=== PATIENT | female | born 1970 | race Caucasian/White ===

== ENCOUNTER 2016-10-27 11:21 | Emergency (ER) | payer OTHER ==
[~2016-10-27] VITALS: Ht 175.3 cm; Wt 129.6 kg
[2016-10-27 11:27] VITALS: BP 154/106; PULSE 81; RESP 16; O2SAT 96
--- NOTE | 2016-10-27 11:34 | ED.REPORT ---
HPI-Abd Pain F 40 and Over Date of Service Oct 27, 2016 ED Provider: Celestino Villalobos DO The patient is a 46 year old female with history of diet controlled diabetes mellitus and hypertension, who presents to the emergency department complaining of left flank pain. The patient has noticed decreased urine output and hematuria over the last 2.5 weeks and is now having left flank pain, nausea, and decreased appetite. She has history of an obstructing kidney stone and subsequently developed sepsis. She is worried she is having a similar episode. Nursing Notes Stated Complaint: ABDOMINAL PAIN Chief Complaint: Female Abdominal Pain Nursing Notes Reviewed: Yes Allergies: Coded Allergies: Penicillins (Verified Allergy, Intermediate, RASH AND DIARRHEA BUT MAY HAVE BEEN CAUSED BY SOMETHING ELSE, 10/27/16) clarithromycin (Verified Adverse Reaction, Intermediate, DIARRHEA, 10/27/16 ) General Time Seen by MD: 11:32 Chief Complaint Flank pain left Hx Obtained From: Patient Arrived By: Walk-in Sudden in Onset?: No Onset Occurred: More than a week ago... Symptom Duration: Since onset Progression since Onset: Constant, Gradually worsening Location: : Flank left Quality: Painful Severity: Current: Moderate Severity: Maximum: Severe Associated with: Reports: Hematuria, Nausea Additional Notes: +decreased urination, decreased appetite Pertinent Negative: Pt denies other symptoms Recent Healthcare: No recent doctor visit, No recent hospitalization Similar Sx Previous: Yes Past Medical History Past Medical History Diabetes mellitus Hypertension Urinary incontinence Kidney stones Asthma PTSD Bipolar Family History Noncontributory Smoking History Unknown if Ever Smoker Social History Other Social History: Local resident Ambulatory Status Independent Review of Systems +Decreased appetite GI: Reports: Nausea Female: Reports: Flank pain, Hematuria, Urinary frequency, Urination decreased Complete sys rev & neg: except as marked. Physical Exam Vital Signs Vital Signs (First) Date Time Temp Pulse Resp B/P Pulse Ox O2 Delivery O2 Flow Rate FiO2 10/27/16 11:27 36 81 16 154/106 96 Room Air Initial VS: Reviewed Head / Eyes: Atraumatic, Normocephalic, PERRL ENT: Mucous membranes moist, Conjunctiva normal, No scleral icterus Neck: Supple, Non-tender, Full range of motion Lymphatic: No lymphadenopathy Extremities: Vascular intact, Neuro intact, No swelling, No tenderness Skin: Warm, Dry, No cyanosis Neurologic: Alert, Oriented, Nonfocal Psychiatric: Mood/affect normal, Behavior normal, Normal thought content General/Constitutional: Awake, Alert Appearance / Presentation: Positive: Obese Respiratory / Chest: Atraumatic, Breath sounds NL, Breath sounds = bilat, No respiratory distress, No rales, No rhonchi, No wheezing, No stridor Cardiovascular: Heart rate NL, Regular rhythm, Heart sounds NL, No gallop, No murmurs, No rubs, Peripheral circulation NL Abdomen: Atraumatic, Soft, Non-tender, McBurney's non-tender, No guarding, No rebound, BS normoactive, No distention, No hernia, No palpable mass, No pulsatile mass Back: Inspection NL, Full range of motion, No midline vertebral tend, No CVA tenderness Interpretation & Diagnostics Lab Results Interpretation Result Diagram: 10/27/16 1240 10/27/16 1240 Test 10/27/16 12:32 10/27/16 12:40 Urine Color Yellow (YELLOW) Urine Appearance Hazy (CLEAR,HAZY) Urine pH 7.0 (5.0-8.0) Urine Specific Douglas 1.015 (1.003-1.035) Urine Protein Negativemg/dL (NEG,TRACE) Urine Glucose (UA) Negativemg/dL (NEGATIVE) Urine Ketones Negativemg/dL (NEGATIVE) Urine Occult Blood Negative (NEGATIVE) Urine Nitrite Negative (NEGATIVE) Urine Bilirubin Negative (NEGATIVE) Urine Urobilinogen Normalmg/dL (NORMAL) Urine Leukocyte Esterase Negative (NEGATIVE) Urine RBC 0-2/hpf (0-2) Urine WBC 0-5/hpf (0-5) Urine Epithelial Cells Occasional/hpf (NONE-MOD) Urine Crystals None seen (NONE SEEN) Urine Bacteria Few/hpf (NONE-FEW) Urine Hyaline Casts None/lpf (NONE) Urine Granular Casts None seen (NONE SEEN) Urine Waxy Casts None seen (NONE SEEN) Urine Red Blood Cell Casts None seen (NONE SEEN) Urine White Blood Cell Casts None seen (NONE SEEN) Urine Mucus Present (None Seen) Urine Trichomonas None seen (NONE SEEN) Urine Yeast None (NONE SEEN) Urinalysis Comment None Urine Culture Reflexed Not indicated Hold Urine Received (Received) White Blood Count 12.4th/mm3 (3.8-10.1) Red Blood Count 4.80mil/mm3 (3.90-5.20) Hemoglobin 13.6g/dL (12.0-15.6) Hematocrit 41.5% (35.0-46.0) Mean Corpuscular Volume 86.5fL (81-100) Mean Corpuscular Hemoglobin 28.3pg (27.0-35.0) Mean Corpuscular Hemoglobin Concent 32.8% (32.0-37.0) Red Cell Distribution Width 15.3% (12.3-15.4) Platelet Count 313bil/L (150-400) Neutrophils (%) (Auto) 66.7% (40-74) Lymphocytes (%) (Auto) 25.7% (14-46) Monocytes (%) (Auto) 6.0% (4-12) Eosinophils (%) (Auto) 1.2% (0-5) Basophils (%) (Auto) 0.2% (0-3) Sodium Level 140mEq/L (134-144) Potassium Level 3.9mEq/L (3.5-5.2) Chloride Level 101mEq/L (97-108) Carbon Dioxide Level 24mmol/L (18-29) Blood Urea Nitrogen 12mg/dL (6-24) Creatinine 0.73mg/dL (0.57-1.00) Estimat Glomerular Filtration Rate 124mL/min (>59) Glucose Level 109mg/dL (60-99) Calcium Level 9.6mg/dL (8.5-10.1) Magnesium Level 2.0mg/dL (1.6-2.6) Total Bilirubin 0.3mg/dL (0.0-1.2) Aspartate Amino Transf (AST/SGOT) 16U/L (0-50) Alanine Aminotransferase (ALT/SGPT) 19U/L (0-32) Alkaline Phosphatase 29U/L (25-150) Total Protein 7.2g/dL (6.4-8.4) Albumin 4.0g/dL (3.4-5.0) Lipase 56U/L (13-60) CT Abd / Pelvis Interpretation IMPRESSION: 1. No renal stone or hydronephrosis. 2. Colonic diverticulosis without evidence of diverticulitis. 3. Cholelithiasis without evidence of cholecystitis. Dictated by: Carissa Aparicio MD, PhD on 10/27/2016 at 13:27 Interpretation / Wet Read by: Interpret - Radiologist Re-Eval/Medical Decision Med Decision/Clinical Course Given the reported clinical history especially history of severe sepsis and large obstructing stone, more resource intensive workup was obtained including urinalysis, blood tests, IV fluids, and CT to exclude an obstructing stone. Ultimately, the patient has no pathology whatsoever. Is not consistent with dissection or other pathology either. She will be discharged home. Return precautions given. Source of Hx: Old records Re-Evaluation/Progress : Time of Eval: 13:40 Re-Evaluation/Progress Note: Rechecked the patient. Discussed plan for discharge. All questions were addressed. Counseled Regarding: Diagnosis, Lab results, Need for follow-up, When/why to return to ED Discharge & Departure Primary Impression: Left flank pain Disposition: Home Discharge Condition All VS Reviewed: Yes Condition: Stable Additional Instructions: Thank you for entrusting us with your care today. Your labs and abdominal CT today are reassuring. There is no evidence of a kidney stone. Please followup with your regular doctor in the next few days for re-evaluation. Seek care for increased pain, fever, chills, vomiting, inability to urinate, painful urination , or any other new or concerning symptoms. Scribe Attestation Portions of this note were transcribed by Teresa Morton. I, Dr. Villalobos personally performed the history, physical exam and medical decision-making; I reviewed and confirmed the accuracy of the information in the transcribed note. Signed by: Se French, 10/27/2016 at 1345. Celestino Villalobos DO Oct 27, 2016 11:34 Teresa Morton Oct 27, 2016 11:40
[2016-10-27] MEDS ORDERED: 0.9% Sodium Chloride 1,000 ML IV ONE (11:46)
[2016-10-27] MEDS ORDERED: Ondansetron 2 mg/mL 2 mL Inj IVPUSH PRN (11:50)
[2016-10-27 12:53] LABS: BASOPHILS % (AUTO) 0.2 % (0-3); EOSINOPHILS % (AUTO) 1.2 % (0-5); Mean Corpuscular Hemoglobin 28.3 pg (27.0-35.0); Mean Corpuscular Volume 86.5 fL (81-100); NEUTROPHILS % (AUTO) 66.7 % (40-74); Platelet Count 313 bil/L (150-400)
[2016-10-27 13:30] LABS: APPEARANCE,URINE HAZY (CLEAR,HAZY); COLOR,URINE YELLOW (YELLOW); OCCULT BLOOD,URINE NEGATIVE (NEGATIVE); UROBILINOGEN,URINE NORMAL (NORMAL)
--- NOTE | 2016-10-27 13:35 | DRSVH ---
PROCEDURE: CT KUB ([id number]) INDICATIONS: left flank pain TECHNIQUE: Noncontrast 5 mm thick sections acquired from the diaphragms to the symphysis. 5 mm thick coronal an d sagittal reformats were then performed. For radiation dose reduction, the following was used: aut omated exposure control, adjustment of mA and/or kV according to patient size. COMPARISON: None. FINDINGS: Image quality: Excellent. Lung bases: Lung bases are clear. Heart size is normal. Urinary system: Both kidneys are normal in size. No kidney stones. No hydronephrosis or perinephri c fat stranding. Both ureters appear non-dilated throughout their expected courses. Bladder wall th ickness is normal; no calcified bladder stones. Other solid organs: Liver and spleen are normal in size. Gallbladder contains numerous gallstones. Pancreas is normal in contours. No adrenal nodules. Peritoneum and bowel: Unenhanced bowel loops demonstrate normal wall thickness and caliber. Scattere d diverticula noted in the sigmoid and left colon without evidence of diverticulitis. No free fluid o r air. Visualized portions of the appendix are normal. Nodes and vessels: No retroperitoneal or mesenteric adenopathy by size criteria. Aorta and inferior vena cava are normal in caliber. Abdominal wall: No ventral hernias. Pelvis: No free pelvic fluid. No inguinal hernias or adenopathy. Bones: No suspicious bony lesions. No vertebral body compression fractures. Spine degenerative dise ase and facet arthropathy are noted. Grade 1 L5-S1 isthmic spondylolisthesis noted. IMPRESSION: 1. No renal stone or hydronephrosis. 2. Colonic diverticulosis without evidence of diverticulitis. 3. Cholelithiasis without evidence of cholecystitis. Dictated by: Carissa Aparicio MD, PhD on 10/27/2016 at 13:27 Approved by: Carissa Aparicio MD, PhD on 10/27/2016 at 13:34
[2016-10-27 13:49] VITALS: BP 127/82; PULSE 72; RESP 20; O2SAT 96
== END 2016-10-27 13:50 | disposition home or self-care (01) ==
LOC: SED 11:21
DX: R10.32 Left lower quadrant pain (principal); R34 Anuria and oliguria; R31.9 Hematuria, unspecified; R11.0 Nausea; R63.0 Anorexia; J45.909 Unspecified asthma, uncomplicated; I10 Essential (primary) hypertension; E11.9 Type 2 diabetes mellitus without complications; Z88.0 Allergy status to penicillin; Z88.1 Allergy status to other antibiotic agents
CPT/HCPCS: 36415; 74176; 80053; 81000; 83690; 83735; 85025; 96361; 96374; 96375; 99285; J1885; J2405; J7030